=== PATIENT | male | born 1970 | race Caucasian/White ===

== ENCOUNTER 2022-02-01 08:57 | Emergency (ER) | payer MEDICAID ==
[~2022-02-01] VITALS: Ht 177.8 cm; Wt 89.4 kg
[2022-02-01 09:03] VITALS: BP 137/99
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
[2022-02-01] MEDS ORDERED: predniSONE 20 MG TAB PO ONE (10:15)
[2022-02-01] MEDS ORDERED: LIDOCAINE 5% 1 EA PATCH TP SCH (10:15)
[2022-02-01] MEDS ORDERED: ACETAMINOPHEN EXTRA STRENGTH 500 MG TAB PO ONE (10:15)
[2022-02-01] MEDS ORDERED: BACLOFEN 10 MG TAB PO SCH (10:15)
--- NOTE | 2022-02-01 10:20 | NUR ---
PT TAKEN TO XRAY VIA WHEELCHAIR
[2022-02-01] MEDS ORDERED: predniSONE 20 MG TAB ONE ×2 (10:37→10:44)
[2022-02-01 11:31] LABS: APPEARANCE,URINE CLEAR (CLEAR); BILIRUBIN,URINE NEGATIVE (NEGATIVE); BLOOD, URINE NEGATIVE (NEGATIVE); COLOR,URINE YELLOW (YELLOW); LEUKOCYTE ESTERASE ,URINE NEGATIVE (NEGATIVE); NITRITE, URINE NEGATIVE (NEGATIVE); UGLUCOSE NEGATIVE (NEGATIVE)
[2022-02-01 11:47] LABS: CALCIUM OXALATE CRYSTALS,UR None Seen /HPF (None Seen); RBC,URINE 0-5 /HPF (0-5); TRICHOMONAS,URINE None Seen /HPF (None Seen); TRIPLE PHOSPHATE CRYSTAL,UR None Seen /HPF (None Seen); URIC ACID CRYSTALS,URINE None Seen /HPF (None Seen); WBC,URINE NONE SEEN /HPF (0-5); YEAST,URINE None Seen /HPF (None Seen)
[2022-02-01 11:48] LABS: COARSE GRANULAR CASTS,URINE None Seen /LPF (None Seen); FINE GRANULAR CASTS,URINE None Seen /LPF (None Seen); HYALINE CASTS, URINE None Seen /LPF (None Seen); OTHER CASTS, URINE None Seen /LPF (None Seen); OTHER CRYSTALS,URINE None Seen /HPF (None Seen); RED BLOOD CELL CASTS,URINE None Seen /LPF (None Seen); URINE AMORPHOUS URATE None Seen /HPF (None Seen); WAXY CASTS,URINE None Seen /LPF (None Seen)
[2022-02-01] MEDS ORDERED: LID5T TP (11:57)
[2022-02-01] MEDS ORDERED: BACL10TA4 PO (11:57)
[2022-02-01] MEDS ORDERED: ACET-10509 PO (11:57)
[2022-02-01 12:48] VITALS: BP 147/96
--- NOTE | 2022-02-01 12:48 | NUR ---
Patient discharged with v/s stable. Written and verbal after care instructions given and explained. Patient alert, oriented and verbalized understanding of instructions. Ambulatory with steady gait. All questions addressed prior to discharge. ID band removed. Patient advised to follow up with PMD. Rx of baclofen, acetaminophen, lidocaine (sent) given. Patient educated on indication of medication including possible reaction and side effects. Opportunity to ask questions provided and answered. xray copy given to pt
--- NOTE | 2022-02-01 12:49 | NUR ---
The patient's care was reviewed and supervised by Letty Rubio, RN, RN.
== END 2022-02-01 12:48 | disposition home or self-care (01) ==
LOC: MED 08:57
DX: S39.012A Strain of muscle, fascia and tendon of lower back, initial encounter (principal); M19.90 Unspecified osteoarthritis, unspecified site; R03.0 Elevated blood-pressure reading, without diagnosis of hypertension; Z79.899 Other long term (current) drug therapy; X50.0XXA Overexertion from strenuous movement or load, initial encounter; Y93.89 Activity, other specified; Y92.89 Other specified places as the place of occurrence of the external cause; Y99.0 Civilian activity done for income or pay
CPT/HCPCS: 72110; 81001; 99285; J7512